=== PATIENT | female | born 1995 | race Caucasian/White ===

== ENCOUNTER 2017-05-21 06:29 | Emergency (ER) | payer SELFPAY ==
[~2017-05-21] VITALS: Ht 157.5 cm; Wt 48.0 kg
[~2017-05-21 06:29] MED LIST: Z.0.NO CURRENT MEDS
[2017-05-21 06:30] VITALS: BP 135/72; PULSE 118; RESP 16; TEMP 98.8; O2SAT 98
[2017-05-21 06:43] VITALS: BP 134/84; PULSE 108; RESP 16; O2SAT 99
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
== END 2017-05-21 07:23 | disposition home or self-care (01) ==
LOC: NEPC 06:29
DX: S09.22XA Traumatic rupture of left ear drum, initial encounter (principal); S09.90XA Unspecified injury of head, initial encounter; S00.432A Contusion of left ear, initial encounter; Y08.89XA Assault by other specified means, initial encounter; Y92.59 Other trade areas as the place of occurrence of the external cause
CPT/HCPCS: 99283

== ENCOUNTER 2017-05-21 17:15 | Emergency (ER) | payer MEDICAID ==
[~2017-05-21] VITALS: Ht 157.5 cm; Wt 50.0 kg
[2017-05-21 18:00] VITALS: BP 129/85; TEMP 98.1; O2SAT 99
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
== END 2017-05-21 19:22 | disposition home or self-care (01) ==
LOC: NEPD 17:15
DX: H72.92 Unspecified perforation of tympanic membrane, left ear (principal); S00.432A Contusion of left ear, initial encounter; Y08.89XA Assault by other specified means, initial encounter; Y92.59 Other trade areas as the place of occurrence of the external cause
CPT/HCPCS: 70450; 72125; 99285